=== PATIENT | female | born 1985 | race Caucasian/White ===

== ENCOUNTER 2024-05-07 06:20 | Emergency (ER) | payer BC, SELFPAY ==
[2024-05-07 06:25] VITALS: BP 112/68
[2024-05-07 07:08] LABS: COVID-19 Antigen Positive (Negative)
--- NOTE | 2024-05-07 07:38 | ED.GENMED ---
History of Present Illness
General
Chief Complaint: Cold/Flu/URI Symptoms
Source: patient
Exam Limitations: none
Time Seen by Provider: 05/07/24 07:01
Nursing documentation reviewed up to this point in time: agreed with
History of Present Illness
History of Present Illness:
38-year-old female without significant past medical history presenting to the emergency department today with concerns of 4 days of upper respiratory symptoms, cough fever nasal congestion sore throat body aches. She claims that she is noticed
worsening chest pressure over the past day or so which prompted her to come to the ER. Did have a positive COVID test at home.
Review of Systems
Review of Systems
Allergies reviewed?: Yes
All Other Systems: ROS reviewed and negative except as documented in HPI and ROS
Phy Exam
Physical Exam
Physical Exam:
GENERAL: Alert , in no apparent distress
EYE: pupils equal and reactive
NECK: Supple, no significant adenopathy.
ENT: o/p clr, mmm.
CARDIAC: Regular rate and rhythm .
LUNGS: Slight end expiratory wheeze otherwise good air movement
ABDOMEN: Soft, without focal tenderness, no r/g, no cvat
NEUROLOGICAL: Alert and oriented, no focal neuro deficits
SKIN: Warm and dry, skin intact.
MUSCULOSKELETAL: No edema, well perfused.
PSYCH: Normal and appropriate interaction.
Course
Orders/Labs/Results
Orders:
Orders
05/07/24 06:31
COVID-19 Antigen Urgent
Source: Nasal Swab
05/07/24 07:22
EKG [Electrocardiogram (*1)] Urgent
Reason for Study: Fatigue / Weakness
EKG- Treatment ONCE
Albuterol [ProAIR HFA INHALER] 2 puff INH R NOW STA
Dexamethasone [Decadron] 10 mg PO NOW STA
Chest [CR Chest - 2 Views ] Urgent
Comment:
Reason For Exam: cough sob
Abnormal Lab Results
05/07/24
06:31
SARS-CoV-2 Antigen Positive A
(Negative)
Vital Signs
Initial and Last Documented VS:
Initial Vital Signs
Temp Pulse Resp BP Pulse Ox
99.4 F 88 16 112/68 98
05/07/24 06:25 05/07/24 06:25 05/07/24 06:25 05/07/24 06:25 05/07/24 06:25
Last Documented Vital Signs
Temp Pulse Resp BP Pulse Ox
99.4 F 88 16 112/68 98
05/07/24 06:25 05/07/24 06:25 05/07/24 06:25 05/07/24 06:25 05/07/24 06:25
MDM/Problems Addressed
MDM/Problems Addressed:
38-year-old female presenting to the emergency department today with concerns of worsening chest tightness in setting of recently diagnosed COVID over the past 4 days or so. Here patient well-appearing no acute distress borderline temperature.
Patient does have a very slight end expiratory wheeze diffusely. She was given an inhaler and dexamethasone. Remained stable throughout ER stay chest x-ray without emergent findings EKG normal. Stable for discharge no signs of complication.
*Critical Care Note
Total Time (30-74mins, 75-104mins- exclusive of procedures): Not Applicable
ED Attending Note
-
Portions of this chart may have been created with voice recognition software.� Occasional wrong word or��sound alike� substitutions may have occurred due to the inherent limitations of voice recognition software.
Discharge Plan
Departure
Patient Disposition: Home (Routine Discharge)
Date of Disposition: 05/07/24
Time of Disposition: 08:12
Patient with high blood pressure during this ER visit?: No
Condition: Good
Covid-19: Not Applicable
Discharge Problem:
COVID-19, Wheeze
Instructions: Viral Syndrome (DC)
Prescriptions:
New
dexamethasone 4 mg tablet
10 mg PO ONCE Qty: 3 0RF
Rx Instructions:
Please use on 05/09/2024
Referrals:
Almaz Cheng DO [Family Provider] -
Activity Restrictions/Additional Instructions:
You came to the emergency department today with concerns of COVID. You also had some wheezing. Please use dexamethasone in 2 to 3 days as a second dose otherwise use the inhaler as needed. Return to the emergency department for any worsening, new
or concerning symptoms.
Interventions
Interventions:
*Risk Screen - Suicide Last Done: 05/07/24 06:25
*General Assessment Last Done: 05/07/24 06:25
*Neglect/Abuse Screening Last Done: 05/07/24 06:25
ED- Fall Risk Assessment Last Done: 05/07/24 06:25
*ED COVID-19 Vaccine History Last Done: 05/07/24 06:25
Discharge Date and Time
Print Language: SWISS
[2024-05-07] MEDS: DECADRON 10 MG PO (07:58)
[2024-05-07] MEDS: ProAIR HFA INHALER 2 PUFF INH (08:29)
[2024-05-07 08:30] VITALS: BP 113/68
== END 2024-05-07 08:30 | disposition home or self-care (01) ==
LOC: EMR 06:20
PROVIDERS: EMERGENCY PHYSICIAN Student in an Organized Health Care Education/Training Program; FAMILY PHYSICIAN Family Medicine
DX: U07.1 COVID-19 (principal); R06.2 Wheezing
CPT/HCPCS: 99284; 94640; 71046; 87811; 93005

== ENCOUNTER → 2024-09-21 15:42 | Outpatient (REF) | payer BC, SELFPAY | LOC: HWWDC 15:42 | PROVIDERS: ATTENDING PHYSICIAN Family Medicine; FAMILY PHYSICIAN Student in an Organized Health Care Education/Training Program | DX: Z12.31 Encounter for screening mammogram for malignant neoplasm of breast (principal) | CPT/HCPCS: 77063; 77067 ==

== ENCOUNTER 2025-08-31 16:28 | Emergency (ER) | payer BC, SELFPAY ==
[2025-08-31 16:29] VITALS: BP 106/66
--- NOTE | 2025-08-31 17:37 | ED.GENMED ---
History of Present Illness
<Leni Moore, CLOTH FRAMER - Last Filed: 08/31/25 20:20>
General
Chief Complaint: Abdominal Pain
Source: patient
Exam Limitations: none
Time Seen by Provider: 08/31/25 17:36
Nursing documentation reviewed up to this point in time: agreed with
History of Present Illness
History of Present Illness:
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 She states has been uncomfortable across her lower abdomen with dull pain and she states she has had esophageal burning like reflux
'here and there.' For the past 2 weeks she has had left upper quadrant and left lower quadrant sharp pains intermittently. Week ago she went to urgent care with the symptoms and was put on Prilosec which she states has helped a little. Today she
felt nauseous and developed a pain in the right side of her abdomen as well as bilateral 'flank pain,' and low back pain. She states all of the symptoms have been coming and going over the past month but seem to be gradually worsening. She made
appointment to see her doctor in 3 days. She had outpatient lab work last week in preparation for that visit.
The resluts from CBC, CMP were reviewed from her phone and all normal save for mild anemia Hgb 11.3
Past History
<Leni Moore, CLOTH FRAMER - Last Filed: 08/31/25 20:20>
Past History
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
ED Past Surgical History: Orthopedic
Social History
Tobacco: Non-smoker
Alcohol: None
Personal:
Living: with family
Employment: Employed
Review of Systems
<Leni Moore, CLOTH FRAMER - Last Filed: 08/31/25 20:20>
Review of Systems
Allergies reviewed?: Yes
All Other Systems: ROS reviewed and negative except as documented in HPI and ROS
Phy Exam
<Leni Moore, CLOTH FRAMER - Last Filed: 08/31/25 20:20>
Physical Exam
Physical Exam:
GENERAL: No acute distress. A&Ox3.
CONSTITUTIONAL: Afebrile.
EYES: clear, conjunctivae normal
ENMT: moist mucus membranes, Pharynx nl
RESPIRATORY: Regular respirations, nonlabored, lungs clear.
CARDIOVASCULAR: Regular rate and rhythm, no murmurs, no rubs.
GI: Soft, abdomen generally mildly tender. Nondistended, normal BS
MUSCULOSKELETAL: Moves with ease. Well perfused.
SKIN: Warm, dry, pink
PSYCH: Normal mood and affect. Well kept, interactive and appropriate
NEUROLOGIC: Awake, alert and oriented. No focal neurological deficits
Course
<Leni Moore, CLOTH FRAMER - Last Filed: 08/31/25 20:20>
Orders/Labs/Results
Orders:
Orders
08/31/25 16:35
EKG [Electrocardiogram (*1)] Urgent
Reason for Study: Chest Pain
EKG- Treatment ONCE
08/31/25 17:53
CT Abd/Pel (IV only)-DH only Urgent
Comment:
Reason For Exam: generalized abdominal pain
Test Result ONCE
08/31/25 18:07
Complete Blood Count/With Diff Urgent
Comprehensive Metabolic Panel Urgent
HCG, Serum Qualitative Screen Urgent
Lipase Urgent
Urinalysis Reflex To Culture Urgent
Date Specimen was Collected: 08/31/25
Time Specimen was Collected: 18:06
Urine Microscopic Reflex Cult Urgent
08/31/25 21:24
Mag Hydrox/Al Hydrox/Simeth [Maalox] 30 ml Phenobarb/Hyoscy/Atropine/Scop [] 10 ml PO NOW
Pantoprazole [Protonix IV] 40 mg IV NOW STA
Abnormal Lab Results
08/31/25
18:07
Hgb 10.5 L g/dL
(12.0-16.0)
Hct 34.0 L %
(37.0-47.0)
MCV 68.4 L fL
(81.0-99.0)
MCH 21.1 L pg
(27.0-31.0)
MCHC 30.9 L g/dL
(33.0-37.0)
RDW 16.5 H %
(11.5-14.5)
MPV 10.9 H fL
(7.4-10.4)
Sodium 134 L mmol/L
(135-145)
Ur Occult Blood Reflex 1+ A
(Negative)
Urine Bacteria (Reflex) Few A
(Negative)
08/31/25 18:07
08/31/25 18:07
Vital Signs
Initial and Last Documented VS:
Initial Vital Signs
Temp Pulse Resp BP Pulse Ox
98.2 F 81 16 106/66 99
08/31/25 16:29 08/31/25 16:29 08/31/25 16:29 08/31/25 16:29 08/31/25 16:29
Last Documented Vital Signs
Temp Pulse Resp BP Pulse Ox
98.2 F 69 16 94/53 100
08/31/25 16:29 08/31/25 18:11 08/31/25 16:29 08/31/25 19:00 08/31/25 19:00
<Michael Churchill, DO - Last Filed: 08/31/25 21:32>
Orders/Labs/Results
Orders:
Orders
08/31/25 16:35
EKG [Electrocardiogram (*1)] Urgent
Reason for Study: Chest Pain
EKG- Treatment ONCE
08/31/25 17:53
CT Abd/Pel (IV only)-DH only Urgent
Comment:
Reason For Exam: generalized abdominal pain
Test Result ONCE
08/31/25 18:07
Complete Blood Count/With Diff Urgent
Comprehensive Metabolic Panel Urgent
HCG, Serum Qualitative Screen Urgent
Lipase Urgent
Urinalysis Reflex To Culture Urgent
Date Specimen was Collected: 08/31/25
Time Specimen was Collected: 18:06
Urine Microscopic Reflex Cult Urgent
08/31/25 21:24
Mag Hydrox/Al Hydrox/Simeth [Maalox] 30 ml Phenobarb/Hyoscy/Atropine/Scop [] 10 ml PO NOW
Pantoprazole [Protonix IV] 40 mg IV NOW STA
Abnormal Lab Results
08/31/25
18:07
Hgb 10.5 L g/dL
(12.0-16.0)
Hct 34.0 L %
(37.0-47.0)
MCV 68.4 L fL
(81.0-99.0)
MCH 21.1 L pg
(27.0-31.0)
MCHC 30.9 L g/dL
(33.0-37.0)
RDW 16.5 H %
(11.5-14.5)
MPV 10.9 H fL
(7.4-10.4)
Sodium 134 L mmol/L
(135-145)
Ur Occult Blood Reflex 1+ A
(Negative)
Urine Bacteria (Reflex) Few A
(Negative)
08/31/25 18:07
08/31/25 18:07
Vital Signs
Initial and Last Documented VS:
Initial Vital Signs
Temp Pulse Resp BP Pulse Ox
98.2 F 81 16 106/66 99
08/31/25 16:29 08/31/25 16:29 08/31/25 16:29 08/31/25 16:29 08/31/25 16:29
Last Documented Vital Signs
Temp Pulse Resp BP Pulse Ox
98.2 F 69 16 94/53 100
08/31/25 16:29 08/31/25 18:11 08/31/25 16:29 08/31/25 19:00 08/31/25 19:00
<Leni Moore CLOTH FRAMER - Last Filed: 08/31/25 20:20>
MDM/Problems Addressed
Differential Diagnosis Includes:
Diverticulitis, colitis, GERD
MDM/Problems Addressed:
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 She states has been uncomfortable across her lower abdomen with dull pain and she states she has had esophageal burning like
reflux 'here and there.' For the past 2 weeks she has had left upper quadrant and left lower quadrant sharp pains intermittently. Week ago she went to urgent care with the symptoms and was put on Prilosec which she states has helped a little.
Today she felt nauseous and developed a pain in the right side of her abdomen as well as bilateral 'flank pain,' and low back pain. She states all of the symptoms have been coming and going over the past month but seem to be gradually worsening.
She made appointment to see her doctor in 3 days. She had outpatient lab work last week in preparation for that visit.
The results from CBC, CMP were reviewed from her phone and all normal save for mild anemia Hgb 11.3
EKG NSR
CBC: Hemoglobin 10.5 with indices showing a chronic element (thalassemia minor)
CMP: Unremarkable
hCG negative
UA unremarkable
8:15 PM:
Awaiting CAT scan results.
Case discussed with Dr. Churchill who will assume care from this point.
<Leni Moore, CLOTH FRAMER - Last Filed: 08/31/25 20:20>
*Pulse Oximetry
SaO2: 99
Oxygen Mode of Delivery: Room air
Patient hypoxic: no
*EKG
EKG Intrepretation Date: 08/31/25
Interpretation: normal
Heart Rate: 65
Rate: normal
Rhythm: sinus
[place]: normal axis
Interval: normal interval
QRS Pattern: normal QRS
Ischemia: no ischemia
*Critical Care Note
Total Time (30-74mins, 75-104mins- exclusive of procedures): Not Applicable
ED Attending Note
<Leni Moore, CLOTH FRAMER - Last Filed: 08/31/25 20:20>
-
Portions of this chart may have been created with voice recognition software.� Occasional wrong word or��sound alike� substitutions may have occurred due to the inherent limitations of voice recognition software.
<Michael Churchill DO - Last Filed: 08/31/25 21:32>
ED Attending Note
Patient seen and examined by attending physician: Yes
I performed the substantive portion of visit, reviewed & personally made and approve the management plan that is documented in note by myself or MICHAEL.: Yes
ED Attending Note:
Seen with MICHAEL examined independently, 1 month of abdominal symptoms dyspepsia, she had a microdiscectomy, had gynecologic surgery, specifically denies any pain in the vaginal area
Discharge Plan
Departure
Patient Disposition: Home (Routine Discharge)
Date of Disposition: 08/31/25
Time of Disposition: 21:31
Patient with high blood pressure during this ER visit?: No
Condition: Good
Discharge Problem:
Abdominal pain
Instructions: Acid Reflux and GERD in Adults (DC), Abdominal Pain
Prescriptions:
No Action
dexamethasone 4 mg tablet
10 mg PO ONCE Qty: 3 0RF
Rx Instructions:
Please use on 05/09/2024
Referrals:
Ashvin Boss MD [Family Provider, Family Practice]
Activity Restrictions/Additional Instructions:
Protonix twice a day
Maalox as needed for indigestion
Keep your appointment with your primary care provider
[place] diet avoid fatty and spicy foods
Interventions
Interventions:
*Risk Screen - Suicide Last Done: 08/31/25 16:29
*General Assessment Last Done: 08/31/25 16:29
*Neglect/Abuse Screening Last Done: 08/31/25 16:29
*ED COVID-19 Vaccine History Last Done: 08/31/25 16:29
*ED Influenza Vaccine History Last Done: 08/31/25 16:29
DH-Nwhyyg-Aufsqphrtf Assessment Last Done: 08/31/25 21:16
Discharge Date and Time
Print Language: COMORAN
[2025-08-31 17:59] VITALS: BMI 24.6
[2025-08-31 18:08] VITALS: BP 98/57
[2025-08-31 18:22] LABS: Hematocrit 34.0 % (37.0-47.0); Hemoglobin 10.5 g/dL (12.0-16.0); Mean Corp Hgb Conc. 30.9 g/dL (33.0-37.0); Mean Corpuscular Volume 68.4 fL (81.0-99.0); Nucleated Red Blood Cells % 0 %; Platelet Count 222 10^3/uL (130-400); Red Cell Dist. Width 16.5 % (11.5-14.5); Urine Character Clear (Clear)
[2025-08-31 18:25] LABS: HCG, Serum Qualitative Screen Negative
[2025-08-31 18:30] LABS: ALT (SGPT) 18 U/L (0-35); AST (SGOT) 26 U/L (14-36); Albumin 4.8 g/dl (3.5-5.0); Alkaline Phosphatase 54 U/L (38-126); Blood Urea Nitrogen 8 mg/dl (7-17); Calcium 9.6 mg/dl (8.4-10.2); Carbon Dioxide 30 mmol/L (22-30); Chloride 101 mmol/L (98-107); Estimated Creatinine Clearance 98 ml/min; Glucose 93 mg/dl (70-99); Lipase 135 U/L (23-300); Potassium 4.5 mmol/L (3.5-5.1); Sodium 134 mmol/L (135-145); Total Protein 7.8 g/dl (6.3-8.2); eGFR > 60.00
[2025-08-31 18:33] LABS: Urine Squamous Cell >30 /LPF (Few)
[2025-08-31 18:34] LABS: Urine Red Blood Cell 0-2 /HPF (0-2); Urine Urothelial Cell 0-2 /LPF (FEW); Urine White Cell 0-2 /HPF (0-5)
[2025-08-31 19:00] VITALS: BP 94/53
[2025-08-31] MEDS: PROTONIX IV 40 MG IV (21:30)
[2025-08-31] MEDS: MAALOX 10 PO (21:30)
== END 2025-08-31 22:24 | disposition home or self-care (01) ==
LOC: EMR 16:28
PROVIDERS: Registered Nurse; EMERGENCY PHYSICIAN Emergency Medicine; FAMILY PHYSICIAN Student in an Organized Health Care Education/Training Program
DX: R10.30 Lower abdominal pain, unspecified (principal); D56.3 Thalassemia minor; M54.50 Low back pain, unspecified
CPT/HCPCS: 96374; 99284; 74177; 80053; 81003; 81015; 83690; 84703; 85025; 93005; Q9967